=== PATIENT | male | born 1955 | race Caucasian/White ===

== ENCOUNTER → 2021-09-19 11:46 | Outpatient (CLI) | payer OTHER, SELFPAY ==
--- NOTE | 2021-09-19 11:49 | DI.MRI.S_ITS ---
PROCEDURE: MR PELIS WO/W CON INDICATIONS: elevated PSA/BPH TECHNIQUE: Coronal HASTE, axial T1 FSE with fat saturation, 3-plane nonbreath-hold T2 FSE. After the administration of contrast, dynamic axial, delayed axial and coronal VIBE or 2-D FLASH with fat saturation through the pelvis. Optional diffusion weighted imaging and ADC may be performed. COMPARISON: None. FINDINGS: Image quality: Diffusion weighted and dynamic contrast enhanced images are diagnostic. Prostate: Gland size is 4.5 x 3.0 x 4.1 cm; ellipsoid gland volume is 28.8 mL. Lesion size(s): Lesion 1: 3.3 x 2.0 x 0.9 cm Lesion 2: 1.4 x 0.7 x 0.6 cm Lesion location(s) (sector): Lesion 1: Right posterior medial peripheral zone extending from base to apex Lesion 2: Left posterolateral peripheral zone at the base. Lesion description: Lesion 1: Irregular, indistinctly marginated hypointensity slightly bulging the posterior capsule Lesion 2: Wedge-shaped mild slightly heterogeneous hypointensity. T2 weighted imaging (T2WI) morphology score: Lesion 1: Five Lesion 2: Two Diffusion weighted imaging (DWI) morphology score: Lesion 1: Three Lesion 2: One Dynamic contrast enhancement (DCE): Lesion 1: Present Lesion 2: Present Lesion PI-RADS score: Lesion 1: PI-RADS four Lesion 2: PI-RADS one Genitourinary system: Bladder wall thickness is normal. Distal ureters are non distended. Bowel and peritoneum: No pathologic free pelvic fluid. Inferior colon and small bowel loops are normal in caliber. Nodes and vessels: No pelvic or inguinal adenopathy by size criteria. Iliac vessels are normal in caliber. Soft tissues: No inguinal hernias. Bones: Marrow demonstrates normal overall signal, without lesions to suggest metastases. IMPRESSION: 1. 3.3 cm right-sided posteromedial peripheral zone lesion has a PI-RADS score of four. Targeted biopsy could be considered. 2. Likely clinically insignificant left-sided peripheral lesion at the prostate base, most likely post inflammatory. 3. No adenopathy visible. Dictated by: Rosalina Lovett M.D. on 09/19/2021 at 17:39 Approved by: Rosalina Lovett M.D. on 09/21/2021 at 23:48
== END ==
PROVIDERS: PCP Student in an Organized Health Care Education/Training Program; Referring Provider Specialist; Visit Provider Specialist
DX: N40.1 Benign prostatic hyperplasia with lower urinary tract symptoms (principal); N13.8 Other obstructive and reflux uropathy; R97.20 Elevated prostate specific antigen [PSA]
CPT/HCPCS: 72197

== ENCOUNTER → 2022-12-28 15:00 | Outpatient (CLI) | payer OTHER, SELFPAY | PROVIDERS: PCP Student in an Organized Health Care Education/Training Program; Visit Provider Nurse Practitioner Family | DX: R30.0 Dysuria (principal) | CPT/HCPCS: 87077; 87086; 87186 ==